=== PATIENT | male | born 1980 | race African-American/Black ===

== ENCOUNTER 2017-01-08 23:40 | Emergency (ER) | payer SELFPAY ==
[~2017-01-08 23:40] MED LIST: HYDR-971 PO; IBUP-1007 PO
[2017-01-09] MEDS ORDERED: KETOROLAC TROMETHAMINE 60 MG/2 ML INJ. IM ONE (00:30)
[2017-01-09] MEDS ORDERED: HYDR-2666 PO (00:35)
--- NOTE | 2017-01-09 00:35 | PHYS DOC ---
Past Medical History Past Medical History: No Pertinent History Past Surgical History: No Surgical History Alcohol Use: Heavy Additional Information: DAILY GIN Drug Use: Marijuana Adult General Chief Complaint Chief Complaint: SHOULDER INJURY HPI HPI Patient is a 36 year old male who presents with right shoulder pain after mechanical fall. Pain is constant, worse with range of motion, achy. He tripped on a step with his sandals. He fell down a few steps and landed on his right lateral shoulder against a wall. He denies head injury, loss of consciousness, neck pain, chest pain, dyspnea, back pain, numbness, tingling, weakness. Review of Systems Review of Systems Constitutional: Denies fever or chills [] Eyes: Denies change in visual acuity, redness, or eye pain [] HENT: Denies nasal congestion or sore throat [] Respiratory: Denies cough or shortness of breath [] Cardiovascular: No additional information not addressed in HPI [] GI: Denies abdominal pain, nausea, vomiting, bloody stools or diarrhea [] : Denies dysuria or hematuria [] Musculoskeletal: Denies back pain [] Integument: Denies rash or skin lesions [] Neurologic: Denies headache, focal weakness or sensory changes [] Endocrine: Denies polyuria or polydipsia [] Current Medications Current Medications Current Medications Medications (Trade) Dose Ordered Sig/[facility] Start Time Stop Time Status Last Admin Dose Admin Ketorolac Tromethamine (Toradol Im) 30 mg 1X ONCE 01/09/17 00:30 01/09/17 00:31 DC Allergies Allergies Allergies Coded Allergies Type Severity Reaction Last Updated Verified No Known Drug Allergies 07/04/14 No Physical Exam Physical Exam Constitutional: Well developed, well nourished, no acute distress, non-toxic appearance. [] HENT: Normocephalic, atraumatic, bilateral external ears normal, oropharynx moist, no oral exudates, nose normal. No villalobos sign, hemotympanum, or raccoon eyes [] Eyes: PERRLA, EOMI, conjunctiva normal, no discharge. [] Neck: Normal range of motion, no tenderness, supple. [] Cardiovascular:Heart rate regular rhythm [] Lungs & Thorax: Bilateral breath sounds clear to auscultation [] Abdomen: Bowel sounds normal, soft, no tenderness. [] Skin: Warm, dry, no erythema, no rash. [] Back: No tenderness, no CVA tenderness. [] Extremities: Right upper extremity with no obvious deformity or discoloration; Has tenderness to lateral clavicle with no other bony tenderness; Full ROM with elbow/wrist/hand; Decreased ROM of shoulder due to pain; Can pronate/supinate; Can make fist/ok sign/thumb up/finger cross and spread; Can flex/ex wrist; Good radial pulse and brisk cap refill equal bilaterally; sensation intact to light touch m/u/r/ax nerves Neurologic: Alert and oriented X 3, normal motor function, normal sensory function, no focal deficits noted. [] Psychologic: Affect normal, judgement normal, mood normal. [] Current Patient Data Vital Signs Vital Signs Date Time Temp Pulse Resp B/P Pulse Ox O2 Delivery O2 Flow Rate FiO2 01/08/17 23:48 98.1 134 18 129/64 97 Room Air 98.1 Radiology/Procedures Radiology/Procedures Right shoulder and clavicle x-rays as interpreted by me with clavicle fracture at the distal one third; otherwise nonacute Course & Med Decision Making Course & Med Decision Making Pertinent Labs and Imaging studies reviewed. (See chart for details) X-rays above. Sling provided. Will be referred to orthopedics. Return precautions given. He understands and agrees with plan. Dragon Disclaimer Dragon Disclaimer This electronic medical record was generated, in whole or in part, using a voice recognition dictation system. Departure Departure Impression: Primary Impression: Closed right clavicular fracture Disposition: HOME, SELF-CARE Condition: STABLE Referrals: NO PCP (PCP) Patient Instructions: Clavicle Fracture, [id number] Additional Instructions: Use sling for comfort. Take Tylenol or ibuprofen as needed for moderate pain. Take hydrocodone as needed for severe pain. Do not drink, drive or operate heavy machinery after taking hydrocodone as it may make you sleepy. Follow-up with orthopedics clinic within one week. Please call for appointment. Return for any concerns. Scripts Hydrocodone Bit/Acetaminophen (Hydrocodone-Apap 5-325 )1 Each Tablet1-2 Tab PO PRN Q6HRS PRN PAIN #20 TAB Prov:Colton SOTO MD 01/09/17 Problem Qualifiers Primary Impression: Closed right clavicular fracture Encounter type: initial encounter Clavicle location: shaft Fracture alignment: nondisplaced Qualified Code: S42.024A - Nondisplaced fracture of shaft of right clavicle, initial encounter for closed fracture Colton SOTO MD Jan 09, 2017 00:35
[2017-01-09 01:00] VITALS: BP 128/69
--- NOTE | 2017-01-09 07:15 | RAD ---
Right clavicle, 2 views, 01/09/2017: History: Fall, pain There is a fracture of the right clavicle at the junction of its middle and distal thirds. The fracture is nondisplaced. Right shoulder, 3 views, 01/09/2017: No additional fracture or dislocation is identified. The periarticular soft tissues are unremarkable. IMPRESSION: Nondisplaced distal clavicular fracture.
== END 2017-01-09 01:02 | disposition home or self-care (01) ==
LOC: ER 23:40
DX: S42.001A Fracture of unspecified part of right clavicle, initial encounter for closed fracture (principal); F12.10 Cannabis abuse, uncomplicated; F10.10 Alcohol abuse, uncomplicated; W01.0XXA Fall on same level from slipping, tripping and stumbling without subsequent striking against object, initial encounter; Y93.89 Activity, other specified; Y99.8 Other external cause status; Y92.89 Other specified places as the place of occurrence of the external cause
CPT/HCPCS: 73000; 73030; 96372; 99284; J1885